=== PATIENT | female | born 1985 | race Caucasian/White ===

== ENCOUNTER 2019-09-25 12:21 | Emergency (ER) | payer MEDICAID ==
[~2019-09-25] VITALS: Ht 154.9 cm; Wt 46.8 kg
[~2019-09-25 12:21] MED LIST: EST1T PO; IBUP-1985 PO; PROG100C11 PO
[2019-09-25 12:38] VITALS: BP 116/77
[2019-09-25] MEDS ORDERED: orphenadrine citrate 60mg/2ml inj. IM ONE (14:25)
[2019-09-25] MEDS ORDERED: ketorolac tromethamine 15mg/ml inj. IM ONE (14:25)
[2019-09-25] MEDS ORDERED: CYCL-1 PO (14:25)
[2019-09-25] MEDS ORDERED: IBUP-1984 PO (14:25)
== END 2019-09-25 15:16 | disposition home or self-care (01) ==
LOC: ER 12:21
DX: M54.5 Low back pain (principal); Z56.0 Unemployment, unspecified; Z88.5 Allergy status to narcotic agent; Z88.0 Allergy status to penicillin; Z79.899 Other long term (current) drug therapy
CPT/HCPCS: 96372; 99284; J1885; J2360

== ENCOUNTER 2024-12-21 15:31 | Emergency (ER) | payer MEDICAID ==
[~2024-12-21] VITALS: Ht 157.5 cm; Wt 46.8 kg
[~2024-12-21 15:31] MED LIST changes: +CYCL-1 PO
[2024-12-21 15:41] VITALS: BP 149/77; PULSE 78; TEMP 99.2; O2SAT 100
--- NOTE | 2024-12-21 15:52 | Physician Documentation ---
History of Present Illness ~ Chief Complaint: Back Pain Stated Complaint: LOWER BACK PAIN Time Seen by MD: 17:32 OK to notify your PCP?: Yes Primary Medical Doctor: [facility] [place] Source: patient Mode of Arrival: POV Exam Limitations: no limitations HPI 39-year-old female presents with low back pain for the past 5 days which is worse on the right flank. This occurred after she was bending over to picker/puller some sheets and she heard a loud pop noise. She states that the pain completely goes away when she is able to lay completely flat but if she is sitting standing or walking the pain is worse. She has tried heating pad, ice pack, TENS unit, ibuprofen and muscle relaxer none of which have been helpful. She has a history of having a kidney infection and has CVA tenderness on exam. Medication Reconciliation Allergies: Coded Allergies: codeine (Verified Allergy, Mild, 03/30/11) Penicillins (Verified Allergy, Unknown, 08/09/17) Scheduled Cyclobenzaprine* (Cyclobenzaprine*), 1 TAB PO Q8H Estradiol* (Estrace*), 1 TAB PO DAILY, (Reported) Ibuprofen (Ibuprofen), 1 TAB PO Q8H, (Reported) Progesterone,Micronized (Progesterone), 1 CAP PO HS, (Reported) Past Medical History Past Medical History: *GI/HEPATOBILIARY* Past Surgical History: noncontributory Drug Use: none Lives with: Family Lives In: Home Occupation: unemployed Review of Systems All Other Systems at this time: Reviewed and Negative Physical Exam Physical Exam Vital Signs: RN Vital Signs have been reviewed: Yes, Temperature: 99.2, Source: Oral, Heart Rate: 78, Respiratory Rate: 16, BP: 149/77, Pulse Oximetry: 100, Weight: 46.800 Oxygen Flow Rate: 0 Pulse Oximetry Reflects: adequate oxygenation Physical Exam General: Alert, no apparent distress. HEENT: PERRL, EOMI, no injection, moist mucous membranes. Neck: Full range of motion. Respiratory: Lungs clear, no respiratory distress. Chest: No accessory muscle use. Cardiovascular: Regular rate and rhythm, no murmurs. Gastrointestinal: Soft, nontender, nondistended. Bowels sounds present. Extremities: Normal range of motion, no deformity. Back: L-spine nontender to palpation, no step-offs. CVA tenderness bilaterally, worse on the left side. Neurologic: Oriented x4. Psychiatric: Normal mood and affect. Skin: Normal color, warm and dry. No edema, no ecchymosis. Progress Results/Orders Reviewed/noted all lab results: Yes Results/Orders Completed Orders - JOHANA BRYANT NP Diazepam Tablet (Valium Tablet) (12/21/24 17:40) Ketorolac Trometh 30mg/Ml Vial (Toradol (12/21/24 17:40) Lidocaine 5% Patch (Lidoderm 5% Patch) (12/21/24 17:40) Lidocaine 5% Patch (Lidoderm 5% Patch) (12/21/24 17:40) Medications Received in ER Medications (Trade) Dose Ordered Sig/Annemarie Route PRN Reason Start Time Stop Time Status Last Admin Dose Admin (Toradol injection) 15 mg ONCE ONCE IM 12/21/24 15:55 12/21/24 15:56 DC 12/21/24 17:29 15 MG Vital Signs 12/21/24 12/21/24 15:41 17:29 Temp 99.2 Pulse 78 Resp 16 16 B/P (MAP) 149/77 Pulse Ox 100 O2 Flow Rate 0 Laboratory Tests Test 12/21/24 15:48 Urine Specimen Description Cln catch midstream Urine Color Straw Urine Clarity Clear Urine pH 6.5 Urine Specific [place] 1.010 Urine Protein Negative Urine Glucose (UA) Negative Urine Ketones Negative Urine Occult Blood Negative Urine Nitrite Negative Urine Bilirubin Negative Urine Urobilinogen 1.0 Urine Leukocyte Esterase Negative Urine Culture Indicated Not ind Volume Urine Centrifuged 10 ml Urine HCG, Qualitative Negative Urine Comment Medical Decision Making Differential Diagnosis This is a 39-year-old female who presents to the emergency department today due to five days of back pain without trauma. She reports a history of her back going out. however, she is concerned today because the pain has been lasting longer than usual and her usual measures of tens unit and [id number] medications and muscle relaxants has not been helpful. No danger signs were noted on exam. No incontinence, numbness, weakness, dragging of a foot. No IVDU/fever. UA obtained, negative for infection. Was medicated for pain in the emergency department with a Toradol injection, p.o. Valium, and application of the lidocaine patch. Naproxen, tizanidine, lidocaine patches to pharmacy. She is advised to see your primary care and request a referral to physical therapy. Return if worse, and danger signs were discussed. Departure Time of Disposition: 17:41 Disposition: 01 HOME / SELF CARE / HOMELESS Impression: Primary Impression: Low back pain Condition: Stable Discharge Instructions: Chronic Back Pain, Acute Back Pain, Adult Additional Instructions: Please see your primary care provider soon for recheck. You may benefit from a referral to physical therapy. Use the prescribed medications for pain, but no further NSAIDs such as naproxen, Motrin, ibuprofen until tomorrow because you got a long-acting form of this in the emergency department. Return if worse, especially with danger signs such as new incontinence, numbness/weakness, dragging of a foot. Referrals: NO PRIMARY CARE PROVIDER (PCP) Prescriptions Tizanidine Hcl (Zanaflex) 2 Mg Tablet 1 TAB PO HS for 10 Days, #30 TAB 0 Refills Prov: JOHANA BRYANT NP 12/21/24 Lidocaine (Lidocaine) 5 % Adh..patch 1 PATCH TOP DAILY for 30 Days, #30 PATCH 0 Refills Prov: JOHANA BRYANT NP 12/21/24 Naproxen (Naproxen) 500 Mg Tablet 1 TAB PO Q12H, #20 TAB Prov: JOHANA BRYANT NP 12/21/24 Education Educated: Patient Educated regarding: diagnosis, treatment, prognosis Additional Comment Medical Screen Exam This patient recieved a medical screening examination. After reviewing the individual's medical complaints with presenting symptoms and performing an appropriate physical examination, it was determined that no immediate life- threatening emergency medical condition is present. This individual is also not a women having contractions. Signature Scribe Signature: no scribe Attestation: The note accurately reflects work and decisions made by me.Johana Henry NP 12/21/24 17:45 SANDRA COBIAN Dec 21, 2024 15:52 JOHANA BRYANT NP Dec 21, 2024 17:40
[2024-12-21 16:28] LABS: BILIRUBIN,URINE NEGATIVE (Neg); CLARITY,URINE CLEAR (Clear); COLOR,URINE STRAW (Yellow); GLUCOSE, URINE NEGATIVE (Neg); KETONES,URINE NEGATIVE (Neg); LEUKOCYTE ESTERASE ,URINE NEGATIVE (Neg); NITRITES, URINE NEGATIVE (Neg); OCCULT BLOOD,URINE NEGATIVE (Neg); PH,URINE 6.5 (4.8-8.0); PROTEIN,URINE NEGATIVE (Neg); URINE HCG NEGATIVE (NEG)
[2024-12-21 16:34] LABS: UA COLLECTION TYPE CLN CATCH MIDSTREAM
[2024-12-21] MEDS: ketorolac trometh 15mg/ml vial 15 MG/ML ML IM ONE (17:29)
[2024-12-21] MEDS ORDERED: LIDOcaine 5% patch TP SCH (17:40)
[2024-12-21] MEDS ORDERED: NAPR-56 PO (17:43)
[2024-12-21] MEDS ORDERED: LIDO700A47 TOP (17:43)
[2024-12-21] MEDS ORDERED: TIZA-189 PO (17:43)
[2024-12-21 17:56] VITALS: RESP 16
[2024-12-21] MEDS: ketorolac trometh 30MG/ML vial 30 MG/ML VIAL IM ONE (17:56)
[2024-12-21] MEDS: diazepam 5mg tablet PO ONE (17:56)
[2024-12-21] MEDS: LIDOcaine 5% patch TP ONE (17:57)
== END 2024-12-21 18:38 | disposition home or self-care (01) ==
LOC: ER 15:31
DX: M54.50 Low back pain, unspecified (principal); Z88.0 Allergy status to penicillin; Z88.5 Allergy status to narcotic agent
CPT/HCPCS: 81003; 81025; 96372; 99284; J1885